=== PATIENT | male | born 1995 | race Caucasian/White ===

== ENCOUNTER → 2021-01-03 10:31 | Outpatient (CLI) | payer OTHER, SELFPAY ==
--- NOTE | ~2021-01-03 | MR_ITS ---
EXAMINATION: MR brain IAC wo/w con EXAM DATE: 01/03/2021 11:47 INDICATION: Tinnitus bilateral ears. TECHNIQUE: Multi-sequential, multiplanar MR images of the brain, brainstem, internal auditory canals were obtained without contrast. Whole brain sagittal T1, axial diffusion, gradient echo (T2*), T1, T 2, FLAIR sequences obtained. High resolution coronal 3-D FIESTA, coronal T1 FSE, axial T1 FSPGR of t he internal auditory canals. Patient was then injected with 14 cc Multihance contrast intravenously. Postcontrast axial and coronal T1 weighted whole brain, axial and coronal high resolution T1 IAC seq uences obtained. There is no prior study for comparison. FINDINGS: No evidence of mastoid or middle ear opacification. The 7th/8th cranial nerve complexes a re symmetric, normal in course and caliber. No cerebellopontine angle masses. Posterior fossa unrem arkable. Small bilateral maxillary sinus mucous retention cysts. There are no areas of restricted diffusion to suggest acute infarction. There is no acute hemorrhage seen on the T2*, a hemosiderin sensitive seq uence. No intraparenchymal brain mass. The ventricles are normal in size. There are no extra-axial collections. Flow voids are seen in the cerebral arteries on the T2-weighted sequences consistent wi th their expected patency. The orbits are unremarkable. Soft tissue is unremarkable. IMPRESSION: Unremarkable brain/IAC examination. Reviewed, dictated and finalized at location B.
[2021-01-03 11:11] LABS: Estimated Glomerular Filt Rate > 60
== END ==
PROVIDERS: PCP Emergency Medicine; Visit Provider Otolaryngology
DX: H93.13 Tinnitus, bilateral (principal)
CPT/HCPCS: 70553; A9577

== ENCOUNTER 2021-12-27 00:12 | Day surgery (SDC) | payer OTHER, SELFPAY ==
[2021-12-15 10:46] VITALS: BMI 25.9
[2021-12-27] MEDS: LACTATED RINGERS 1,000 ML 150 ML IV CONT (11:34)
[2021-12-27 11:36] VITALS: BP 122/81; PULSE 95; RESP 16; TEMP 36.6; O2SAT 96
--- NOTE | 2021-12-27 11:58 | P.PNAN_ITS ---
Anes - Initial Pre Proc Eval Procedure: Operation Date: 12/27/21 12:30 Proposed Procedures p Colonoscopy - Higinio Pal MD Date/Time: 12/27/21 11:58 Surgeon: Higinio Pal MD Pre Op Diagnosis: Rectal Bleeding Patient Data Age: 26 Gender: M Height: 1.7 m Weight: 75 kg Last Vital Signs Temp 97.9 F 12/27/21 11:36 Pulse 95 12/27/21 11:36 Resp 16 12/27/21 11:36 BP 122/81 12/27/21 11:36 Pulse Ox 96 12/27/21 11:36 O2 Del Method Room Air 12/27/21 11:36 Allergies Allergy/AdvReac Type Severity Reaction Status Date / Time No Known Allergies Allergy Verified 12/27/21 11:29 Home Medications Medication Instructions Recorded Confirmed Type duloxetine 30 mg capsule,delayed 30 mg PO DAILY 12/07/21 12/15/21 History release (Cymbalta) Patient hx anesthesia problems: none Family hx anesthesia problems: none Results Review: All pre-operative results and documents have been reviewed as part of the pre- operative evaluation. [facility] Past Medical History Medical History Anxiety Depression Family History Family History Mother Addiction Unknown Diabetes mellitus Heart disease Social History Social History Smoking status: Never smoker Alcohol intake: current Alcohol use details: socially Substance use: never Substance use type: does not use Living arrangements: with family Spiritual care concerns: No Anes - Eval Final PreProcedure Day of Procedure 12/27/21 11:58 Patient weight: normal Heart: regular rate and rhythm Lungs: clear to auscultation Airway: Mallampati scale class II Neurological: alert and oriented Last oral intake: >/= 8 hours ASA classification: II Emergent: no Anesthetic plan: proceed Anesthesia type and monitoring: general GIVS and standard monitoring Results Review: All pre-operative results and documents have been reviewed as part of the pre- operative evaluation. Informed Consent: The patient's anesthetic plan and its attendant risks and benefits were discussed with the patient/family/POA. Questions were solicited and answers provided to the satisfaction of the patient/family/POA.
--- NOTE | 2021-12-27 12:04 | PM.HPGS ---
History of Present Illness History of Present Illness Consent: Risks, benefits, and alternatives have been discussed and questions answered. Patient agrees to proceed with procedure. Chief complaint: Rectal Bleeding Narrative: Gary Xie is a 26 year old male with intermittent rectal bleeding, never had colonoscopy Review of Systems Constitutional: Constitutional: Denies headache(s) and Denies weakness Eyes: Eyes: Denies blurry vision ENT: Reports Normal hearing present, Denies headache(s) and Denies neck pain Cardiovascular: Cardiovascular: Denies chest pain and Denies dyspnea Respiratory: Respiratory: Denies dyspnea Gastrointestinal: Gastrointestinal: Reports no additional gastrointestinal complaints Genitourinary: Genitourinary: Denies dysuria Musculoskeletal: Musculoskeletal: Denies neck pain Integumentary/Breasts: Skin/Breast: Denies dry skin Neurologic: Reports Normal hearing present, Denies headache(s) and Denies weakness Psychiatric: Psychiatric: Denies anxiety Endocrine: Endocrine: Denies change in body appearance Hematologic/Lymphatic: Hematologic/Lymphatic: Denies easy bleeding Allergic/Immunologic: Allergic/Immunologic: Denies urticaria PMFSH Past Medical History Medical History Anxiety Depression Family History Family History Mother Addiction Unknown Diabetes mellitus Heart disease Social History Social History Smoking status: Never smoker Alcohol intake: current Alcohol use details: socially Substance use: never Substance use type: does not use Living arrangements: with family Spiritual care concerns: No Meds Home Medications and Allergies Home Medications Medication Instructions Recorded Confirmed Type duloxetine 30 mg capsule,delayed 30 mg PO DAILY 12/07/21 12/15/21 History release (Cymbalta) Allergies Allergy/AdvReac Type Severity Reaction Status Date / Time No Known Allergies Allergy Verified 12/27/21 11:29 Vital Signs Vital Signs - 24 hr 12/27/21 11:36 Temperature 97.9 F Pulse Rate 95 Respiratory Rate 16 Blood Pressure 122/81 Pulse Oximetry 96 Oxygen Delivery Room Air Exam Const: General: comfortable and no acute distress HENMT: General nose exam: Normal nares present Eyes: General: appearance normal, both eyes and all related structures Neck: Neck: no JVD Resp: Auscultation: clear to auscultation bilaterally Cardio: Rate: regular rate Rhythm: regular rhythm GI: Inspection: non-distended GI Palp: Yes Soft to palpation Skin: General skin exam: normal color Neuro: General: gait normal Speech: normal speech Extrem: General: normal to inspection Psych: Mental Status: mental status grossly normal Assessment and Plan Assessment and plan (1) Rectal bleeding: Code(s): K62.5 - Hemorrhage of anus and rectum Status: Acute Assessment and Plan: colonoscopy
[2021-12-27 12:20] VITALS: BP 84/48; PULSE 89; RESP 23; O2SAT 96
[2021-12-27 12:30] VITALS: BP 72/51; PULSE 94; RESP 23; O2SAT 100
[2021-12-27 12:40] VITALS: BP 99/67; PULSE 92; RESP 19; O2SAT 100
== END 2021-12-27 12:44 | disposition home or self-care (01) ==
PROVIDERS: PCP Emergency Medicine; Visit Provider Internal Medicine Gastroenterology
PROC: 0DJD8ZZ Inspection of Lower Intestinal Tract, Via Natural or Artificial Opening Endoscopic (ICD-10-PCS; CPT 45378; principal; 2021-12-27 12:30)
DX: K62.5 Hemorrhage of anus and rectum (principal); F41.9 Anxiety disorder, unspecified; F32.A Depression, unspecified; K64.8 Other hemorrhoids
CPT/HCPCS: 45378; J2704; J7120